=== PATIENT | female | born 1990 | race African-American/Black ===

== ENCOUNTER 2023-05-27 11:36 | Emergency (ER) | payer OTHER, SELFPAY ==
[2023-05-27 11:38] VITALS: BP 151/115; PULSE 76; RESP 18; TEMP 35.9; O2SAT 100; BMI 24.8
--- NOTE | 2023-05-27 12:46 | EDS_ITS ---
HPI History of Present Illness Chief Complaint: Headache Detail of Chief Complaint: Headache. History of prior migraines years ago. Informant: patient Onset/Context/Timing Onset: Today and Hours Context: Gradual Timing: Continuous Quality -Headache: Positive for Similar Prior Headaches, Dull and Throbbing Current Severity: Moderate Maximum Severity: Moderate Associated Symptoms/Injury Associated Symptoms: Positive for Nausea, Visual Changes and Photophobia; Negative for Fever, Vomiting, Sore Throat, Sinus Pressure, Numbness, Tingling, Blurred Vision or Visual Loss Injury - BARCENAS: Negative for Direct Trauma, Fall or Assault Narrative Narrative: -year-old female history of anxiety, depression and anemia. History of prior migraines. Since she has not had headaches for years. Does not believe she has ever had any brain imaging. Said today around 9 AM to start having a headache behind her left eye. With some photophobia. Associated nausea no vomiting. No fever. No head or neck trauma. She is on no blood thinners. Denies any weakness or numbness to her extremities. Prior similar symptoms: Yes Recent Illness/Hospitalization: No PFSH PFSH Medical History Anxiety Medical History no medical history Home Medications sumatriptan succinate 25 mg tablet (Imitrex) 25 mg PO Q2H PRN migraine headache #10 tabs 05/27/23 [Rx Last Taken Unknown] Allergy/AdvReac Type Severity Reaction Status Date / Time No Known Allergies Allergy Verified 05/27/23 11:37 Surgical History no surgical history Social History Smoking Status: Current every day smoker tobacco type: cigarettes ROS ROS ED ROS Narrative . Nausea. Photophobia. Review of Systems ROS Unobtainable: Denies due to encephalopathy Constitutional Constitutional ED: Denies chills or fever(s) Eyes Eyes: Reports change in vision; Denies blurry vision ENT ENT ED: Denies ear pain, rhinorrhea or sore throat Cardiovascular Cardiovascular: Denies chest pain Respiratory/Chest Respiratory/Chest: Denies cough or dyspnea Gastrointestinal Gastrointestinal: Reports nausea; Denies abdominal pain, constipation, diarrhea, melena or vomiting Genitourinary Genitourinary ED: Denies dysuria or hematuria Musculoskeletal Musculoskeletal: Denies arthralgias or back pain Integumentary Denies abscess Neurologic Neurologic: Reports headache(s); Denies paresthesias Psychiatric Psychiatric: Denies anxiety Endocrine Endocrinology: Denies polydipsia Hematologic/Lymphatic Hematologic/Lymphatic: Denies easy bleeding or easy bruising Allergic/Immunologic Allergic/Immunologic ED: Denies mouth swelling, tongue swelling or urticaria EXAM Physical Exam Narrative Exam Narrative: Well-appearing 31-year-old female. Vital signs stable initial blood pressure elevated 151/115. She is afebrile. She does not look septic toxic. She is seated alone in a darkened room. HEENT exam given reactive light. No facial droop. Normal speech. No signs of trauma. Nontender. Extra motions are intact. Neck nontender no meningismus equal touch in the chest. No ly mphadenopathy. Lungs clear. Heart regular rhythm. Abdomen soft nontender. Moving all 4 extremities. 5 and 5 data visualization developer strength. Dorsi plantarflexion intact. Neurologic exam normal. NIH 0. Fingertip to nose within normal limits. Benign exam. Const Vital Signs: 05/27/23 11:38 05/27/23 14:15 Temperature 96.7 F L Temperature Source Temporal Pulse Rate 76 80 Respiratory Rate 18 Blood Pressure 151/115 H 123/67 H Blood Pressure Mean 127 85 Pulse Ox 100 Oxygen Delivery Method Room Air Positive well nourished and well developed; Negative for obese, cachectic, contractures or unkempt General Appearance ED: well developed and NAD; Negative for unkempt, cachectic, contractures, cyanotic or diaphoretic Nutritional Appearance: Negative for cachectic or obese HEENT Reports normocephalic and moist mucous membranes atraumatic; Negative for trauma, tenderness, temporal artery tenderness or vesicular rash Face and Sinus: Negative for sinus tenderness Eyes EOMs intact bilaterally General Eye ED: Negative for pale conjunctiva or scleral icterus Neck no lymphadenopathy, supple, no meningeal signs and no JVD General: Negative for tenderness Resp normal respiratory effort and clear to auscultation bilaterally Effort and Inspection: Negative for retractions Auscultation: Negative for rales, rhonchi or wheezes Cardio regular rate, regular rhythm, S1 normal heart sound, S2 normal heart sound and no murmurs Rate: Negative for bradycardia or tachycardic Rhythm: Negative for abnormal rhythm GI non-tender and non-distended Auscultation: normoactive bowel sounds Palpation: soft; Negative for firm or tender Back/Spine no CVA tenderness General Back: Negative for CVA tenderness Cervical Spine: Negative for cervical spine tenderness Thoracic Spine / Upper Back: Negative for thoracic spinal tenderness Lumbar Spine / Lower Back: Negative for lumbar spinal tenderness Extremity normal to inspection and full ROM General Extremety ED: Negative for edema or tenderness General Extremity: Negative for edema Neuro oriented x3 and CN's II-XII intact bilaterally Sensorium / Orientation: awake, alert, oriented to person, oriented to place and oriented to time; Negative for orientation impaired, lethargic or stuporous Coordination / Balance: [id number] test normal Speech: speech normal Motor Exam: strength 5/5 throughout Comatose: Negative for other Psych mental status grossly normal Appearance: Negative for unkempt Attitude: No agitated Mood & Affect: Negative for depressed, anxious or tearful Skin General Skin Exam: elasticity normal Rashes: no rashes Trauma: Negative for abrasion MDM MDM MDM Narrative Medical decision making narrative: 33-year-old female with headache that is most likely a migraine being treated with IV fluids, Toradol, Reglan and Benadryl. CT of the brain also be obtained due to her elevated blood pressure. Intercranial bleed. Plan patient is doing well at home. Headache is resolving. She feels much better. Neurologic exam remains normal. She will be discharged home treated as a migraine headache. She is comfortable with the plan. Wrote for prescription for Imitrex. History & Record Review Discussion w/independent historian: Patient Radiography Diagnostic Testing: Clinical Impression(s) from Imaging Studies Brain CT 05/27/23 13:32 IMPRESSION: Normal unenhanced CT scan of the brain. Electronically Signed: Finesse Denis MD at 13:46 EDT , Discharge Plan Triage Chief Complaint: Headache Other Complaint: Neuro S/Sx Vision Prob ED Provider: Yosvany Cole Dx/Rx/DC Orders Clinical Impression: Headache, Migraine Instructions: ED, Migraine (Classical) Prescriptions: New sumatriptan succinate [Imitrex] 25 mg tablet 25 mg PO Q2H PRN (Reason: migraine headache) Qty: 10 0RF Rx Instructions: do not exceed 8 doses per 24 hrs Primary Care Provider: [facility] Referrals: Arik Cristina MD [Med Staff - [employer]] - As Needed NOT,DEFINED [Non-Staff] - Activity Restrictions/Additional Instructions: Plenty of fluids and rest. Follow-up with your primary care provider at the [facility] or local primary care physician. Your CAT scan was normal. This will be treated as a migraine headache. Checks as needed for similar type headaches. Disposition Disposition: Home, Self Care
[2023-05-27] MEDS: DiphenhydrAMINE 50 MG/ML Syringe 25 MG IV (12:54)
[2023-05-27] MEDS: 0.9% Normal Saline 1,000 ML 1000 ML IV (12:54)
[2023-05-27] MEDS: Ketorolac 30 MG/ML Syringe IV (12:56)
[2023-05-27] MEDS: Metoclopramide 10 MG/2 ML Vial 5 MG IV (12:58)
--- NOTE | 2023-05-27 13:32 | CT_ITS ---
STUDY: CT BRAIN WITHOUT CONTRAST REASON FOR EXAM: Female, 33 years old. Headache RADIATION DOSAGE (If Supplied By Facility): CTDIvol = ( 44.99 ) mGy, DLP = ( 762.36 ) mGycm TECHNIQUE: Transaxial CT imaging of the brain was performed without administration of intravenous contrast material. Individualized dose optimization techniques were used for this CT. COMPARISON: No relevant priors. FINDINGS: Normal soft tissue structures. Normal calvarium. Normal size ventricles and extra-axial spaces for the patient''s age. Normal white matter tracts of the cerebral hemispheres. Normal basal ganglia and thalami. Normal brainstem. Normal cerebellum. There is no intracranial hemorrhage. There are no findings of an acute ischemic infarction. Normal visualized paranasal sinuses. CT/Brain/Head without Contrast IMPRESSION: Normal unenhanced CT scan of the brain. Electronically Signed: Finesse Denis MD at 13:46 EDT ,
[2023-05-27 14:15] VITALS: BP 123/67; PULSE 80
[2023-05-27 14:16] VITALS: BMI 24.8
== END 2023-05-27 15:04 | disposition home or self-care (01) ==
PROVIDERS: Emergency Provider Emergency Medicine; Visit Provider Emergency Medicine
DX: G43.909 Migraine, unspecified, not intractable, without status migrainosus (principal); R03.0 Elevated blood-pressure reading, without diagnosis of hypertension; R11.0 Nausea; F17.210 Nicotine dependence, cigarettes, uncomplicated
CPT/HCPCS: 70450; 96361; 96374; 96375; 99285; J7030; A4216

== ENCOUNTER 2024-06-25 16:11 | Emergency (ER) | payer OTHER, SELFPAY ==
[2024-06-25 16:12] VITALS: BP 138/97; PULSE 75; RESP 18; TEMP 37; O2SAT 100; BMI 23.8
--- NOTE | 2024-06-25 16:40 | ED.VIS.GI ---
HPI HPI - GI History of Present Illness Chief Complaint: Nausea/Vomiting/Diarrhea Narrative Narrative: 34-year-old female who denies significant past medical history presents with nausea, vomiting, diarrhea, and abdominal cramping that she has had for the last few days. She states she thinks she ate 2 pieces of bad sushi on evening, the tasted funny and freezer burned. On Wednesday, she felt abdominal cramping creeping in. She experienced nausea and vomiting, and then started having diarrhea. She was able to eat yesterday, and was able to hold down food, she ate breakfast this morning, prior to arrival vomited that back up. She denies any fevers or chills, no previous abdominal surgeries, no exacerbating or alleviating factors. She states she gets epigastric cramping, that travels downward. [facility] Medical History Anxiety Home Medications ?Medication ?Instructions ?Recorded ?Last Taken ?Type sumatriptan succinate 25 mg tablet 25 mg PO Q2H PRN migraine headache 05/27/23 Unknown Rx (Imitrex) #10 tabs dicyclomine 20 mg tablet 20 mg PO TID #20 tabs 06/25/24 Unknown Rx ondansetron 4 mg disintegrating 4 mg PO Q6H PRN nausea and 06/25/24 Unknown Rx tablet vomiting #15 tabs Allergy/AdvReac Type Severity Reaction Status Date / Time No Known Allergies Allergy Verified 06/25/24 16:12 Social History Smoking Status: Current every day smoker tobacco type: cigarettes ROS ROS ED ROS Narrative Constitutional: No fever, no chills. HEENT: No sore throat. No neck pain. No loss of vision. No rhinorrhea. Cardiovascular: No chest pain. No palpitations. No pedal edema. Respiratory: No cough, no shortness of breath. Abdominal: Epigastric to diffuse crampy abdominal pain. Positive nausea, vomiting, and diarrhea. No blood in emesis or stool. Genitourinary: No dysuria. No hematuria. Musculoskeletal: No myalgias. No arthralgias. Neurologic: No headaches. No dizziness. No lightheadedness. Skin: No rash. No change in color. EXAM Physical Exam Narrative Exam Narrative: Afebrile. Vital signs noted. HEENT: Normocephalic. Atraumatic. PERRL, EOMI. Neck soft and supple. No point tenderness or step off. Cardiovascular: Regular rate and rhythm. No murmurs, rubs, or gallops appreciated. Respiratory: No tachypnea. Lungs clear to auscultation bilaterally. Gastrointestinal: Abdomen soft, nontender, with normoactive bowel sounds. No rebound or guarding. Neurological: Awake. Alert. Nonfocal, nonlateralizing. Skin: No rash. Normal color. No pallor. Musculoskeletal: No pedal edema. Full range of motion extremities. Const Vital Signs: 06/25/24 16:12 Temperature 98.6 F Temperature Source Oral Pulse Rate 75 Respiratory Rate 18 Blood Pressure 138/97 H Blood Pressure Mean 110 Pulse Ox 100 Oxygen Delivery Method Room Air MDM MDM MDM Narrative Medical decision making narrative: Differential diagnosis includes but not limited to gastroenteritis versus food poisoning versus pancreatitis versus bowel obstruction. I have very low clinical suspicion for bowel obstruction based on the history and physical, she has not had any prior abdominal surgeries. I do not feel that emergent CT imaging of the abdomen is indicated. She was administered ondansetron for her nausea, and dicyclomine for her abdominal cramping. She is not tachycardic and she has slightly elevated blood pressure so I doubt significant dehydration. I will check a CBC and a CMP to look for an electrolyte imbalance and to check her kidney function to make sure she does not have an acute kidney injury as well. She was bolused 250 mL of normal saline. test will be checked as well to make sure she does not have hyperemesis gravidarum. I reviewed her laboratory work and she has normal white count of 6.8, hemoglobin stable 11.2, hematocrit 32.9 with normal platelet count of 174. Electrolyte panel is significant for potassium of 3.4 which was replaced orally with 40 mill equivalents. BUN of 10 with creatinine of 0.91, glucose normal at 90. Lipase is normal at 42 so I doubt pancreatitis. Serum test is negative. I do not feel that she requires any imaging of her abdomen. Repeat examination at approximately 1730 shows her abdomen to remain soft and there has been no vomiting in the ED. She states that after the Bentyl shot, she had 1 large abdominal cramp, but it has not returned. At this point in time, I feel she can be discharged to follow-up with her primary care provider. She will start a clear liquid diet and advance as tolerated. I did write her prescriptions for Zofran ODT's and for Bentyl to take as an outpatient. Return instructions to the emergency department were reviewed. Disposition is discharged home in stable condition. History & Record Review Discussion w/independent historian: Patient Lab Data Attestation: I reviewed the patient's lab results. Labs: Laboratory Results - last 24 hr 06/25/24 16:28 WBC 6.8 RBC 3.74 L Hgb 11.2 L Hct 32.9 L MCV 88.0 MCH 29.9 MCHC 34.0 RDW Std Deviation 41.6 RDW Coeff of Tee 12.9 Plt Count 174 MPV 11.0 Immature Gran % (Auto) 0.100 Neut % (Auto) 71.7 H Lymph % (Auto) 19.9 [place] % (Auto) 6.7 Eos % (Auto) 1.0 Baso % (Auto) 0.6 Absolute Neuts (auto) 4.9 Absolute Lymphs (auto) 1.36 Nucleated RBC % 0 Sodium 142 Potassium 3.4 L Chloride 108 H Carbon Dioxide 27.0 Anion Gap 6 BUN 10 Creatinine 0.91 Estim Creat Clear Calc 75.93 Est GFR (MDRD) Af Amer 92 Est GFR (MDRD) Non-Af 76 BUN/Creatinine Ratio 11.0 Glucose 90 Calcium 9.4 Total Bilirubin 0.40 AST 16 ALT 11 L Alkaline Phosphatase 57 Total Protein 7.9 Albumin 4.1 Globulin 3.8 Albumin/Globulin Ratio 1.1 Lipase 42 Serum , Qual NEGATIVE Discharge Plan Triage Chief Complaint: Nausea/Vomiting/Diarrhea ED Provider: Ran Dotson Dx/Rx/DC Orders Clinical Impression: Nausea, vomiting, and diarrhea, Hypokalemia, Abdominal cramping Instructions: ED Diet Vomiting Diarrhea, ED Food Poisoning (Adult), ED Hypokalemia, ED Gastroenteritis, Viral (Adult) Prescriptions: New dicyclomine 20 mg tablet 20 mg PO TID Qty: 20 0RF ondansetron 4 mg tablet,disintegrating 4 mg PO Q6H PRN (Reason: nausea and vomiting) Qty: 15 0RF No Action sumatriptan succinate [Imitrex] 25 mg tablet 25 mg PO Q2H PRN (Reason: migraine headache) Qty: 10 0RF Rx Instructions: do not exceed 8 doses per 24 hrs [facility] Provider[facility] [Primary [facility] Provider] - Activity Restrictions/Additional Instructions: Clear liquid diet and advance as tolerated. Follow-up with your primary care provider in the next few days. Return with fever, increased pain, new or worsening symptoms. Print Language: Irish Disposition Disposition: Home, Self Care
[2024-06-25] MEDS: Dicyclomine 20 MG/2 ML Vial IM (16:48)
[2024-06-25] MEDS: 0.9% Normal Saline (250mL Bag) 250 ML 999 ML IV (16:48)
[2024-06-25] MEDS: Ondansetron 4 MG/2 ML Vial IV (16:48)
[2024-06-25 16:50] LABS: Absolute Lymphocyte Count 1.36 X10^3/uL (0.83-4.51); Absolute Neutrophil Count 4.9 X10^3/uL (2.0-7.7); Basophil# 0.04 X10^3/uL; Basophil% 0.6 % (0-1); Eosinophil# 0.07 X10^3/uL; Hematocrit 32.9 % (37-47); Hemoglobin 11.2 g/dL (12.0-15.0); Lymphocyte # 1.36 X10^3/ul (0.83-4.51); Lymphocyte % 19.9 % (19-41); Mean Corpuscular Hgb 29.9 pg (27.0-32.0); Monocyte# 0.46 X10^3/uL; Monocyte% 6.7 % (0-10); NRBC Flagged by Analyzer 0 % (0-5); Neutrophil # 4.88 X10^3/uL (2.7-7.7); Neutrophil % 71.7 % (47-70); Platelet Count 174 K/mm3 (150-450); RBC Distribution Width CV 12.9 % (11.6-14.6); RBC Distribution Width SD 41.6 fl (35.1-43.9); Red Blood Count 3.74 M/mm3 (4.2-5.4); White Blood Count 6.8 K/mm3 (4.4-11.0)
[2024-06-25 17:16] LABS: ALB/GLOB Ratio 1.1 RATIO (0.9-2.4); AST(SGOT) 16 U/L (15-37); Alanine Aminotransfer ALT/SGPT 11 U/L (13-56); Albumin, Serum 4.1 g/dL (3.2-5.0); Alkaline Phosphatase 57 U/L (45-117); Anion Gap 6 (5-15); BUN 10 mg/dL (7-18); Calcium,Total 9.4 mg/dL (8.5-10.1); Chloride 108 mmol/L (98-107); Creatinine, Serum 0.91 mg/dL (0.55-1.02); EST Glomerular Filtration Rate 76 mL/min (>60); Est Glom Filt Rate - Afr Amer 92 mL/min (>60); Estimated Creatinine Clearance 75.93 ml/min; Globulin 3.8 g/dL (2.2-4.2); Glucose 90 mg/dL (74-106); Lipase 42 U/L (13-75); Potassium 3.4 mmol/L (3.5-5.1); Protein, Total 7.9 g/dL (6.4-8.2); Sodium Level 142 mmol/L (136-145)
[2024-06-25 17:18] LABS: Internal QC Validated? YES +Cl - CLEAR BKGD; Pregnancy, Serum, hCG Quali. NEGATIVE Negative
[2024-06-25] MEDS: Potassium Chloride Oral Tablet 20 MEQ 40 MEQ PO (17:38)
[2024-06-25 17:41] VITALS: BP 128/94; PULSE 78; RESP 18; TEMP 36.6; O2SAT 97
== END 2024-06-25 17:48 | disposition home or self-care (01) ==
PROVIDERS: Emergency Provider Emergency Medicine; Visit Provider Emergency Medicine
DX: R11.2 Nausea with vomiting, unspecified (principal); E87.6 Hypokalemia; R19.7 Diarrhea, unspecified; R10.9 Unspecified abdominal pain; F17.210 Nicotine dependence, cigarettes, uncomplicated
CPT/HCPCS: 80053; 83690; 84703; 85025; 96372; 96374; 99282; A4216; J2405